=== PATIENT | male | born 1975 | race Two or more races ===

== ENCOUNTER 2020-09-12 14:06 | Outpatient (REF) | payer OTHER, SELFPAY ==
[2020-09-13 11:19] LABS: SARS COV2 PCR INHOUSE NEGATIVE (Negative)
== END 2020-09-12 14:07 | disposition home or self-care (01) ==
LOC: HO.LAB 14:06
PROVIDERS: Visit Provider Internal Medicine
DX: Z20.822 Contact with and (suspected) exposure to COVID-19 (principal)
CPT/HCPCS: C9803; U0003

== ENCOUNTER 2020-10-16 15:38 | Outpatient (REF) | payer OTHER, SELFPAY | END 2020-10-16 15:39 | disposition home or self-care (01) | LOC: HO.LAB 15:38 | PROVIDERS: Visit Provider Internal Medicine | DX: Z20.822 Contact with and (suspected) exposure to COVID-19 (principal) | CPT/HCPCS: C9803; U0003; U0005 ==

== ENCOUNTER 2022-08-14 12:15 | Outpatient (REF) | payer OTHER, SELFPAY ==
[2022-08-14 16:02] LABS: MANUAL DIFF FLAG NO
[2022-08-14 17:42] LABS: Basophils Absolute Auto 0.1 X10*3/uL (0.0-0.2); Basophils Percent Auto 0.9 % (0-2); Eosinophils Absolute Auto 0.1 X10*3/uL (0.0-0.4); Eosinophils Percent Auto 1.3 % (0-4); Hematocrit 44.6 % (42.0-52.0); Hemoglobin 15.2 g/dl (14.0-18.0); Imm Gran Abs Auto 0.04 X10*3/uL (0.00-0.03); Imm Gran Pct Auto 0.5 % (0.0-0.4); Lymphocytes Absolute Auto 2.6 X10*3/uL (1.2-4.9); Lymphocytes Percent Auto 30.4 % (20-40); Mean Corpuscular HGB Conc 34.1 g/dl (31.0-36.0); Mean Corpuscular Volume 88.1 fL (80.0-98.0); Mean Platelet Volume 10.8 fL (9.4-12.4); Monocytes Absolute Auto 0.7 X10*3/uL (0.1-1.2); Monocytes Percent Auto 7.7 % (2-11); Neutrophils Absolute Auto 5.1 x10*3/uL (2.0-8.3); Neutrophils Percent Auto 59.2 % (45-73); Platelet Count 290 X10*3/uL (160-400); Red Blood Count 5.06 X10*6/uL (4.60-5.80); White Blood Count 8.6 X10*3/uL (4.8-10.8)
[2022-08-14 17:49] LABS: D Dimer High Sensitivity < 150 NG/ML
[2022-08-14 18:22] LABS: Erythrocyte Sedimentation Rate 5 MM/HR (0-15)
[2022-08-14 18:52] LABS: Anion Gap 13 (12-20); Blood Urea Nitrogen 14 mg/dL (9-16); Calcium 9.9 mg/dL (8.4-10.2); Carbon Dioxide 30 mmol/L (22-29); Chloride 97 mmol/L (96-108); Estimated Glomerular Filt Rate 60; Glucose Random 481 mg/dL (60-115); Potassium 4.7 mmol/L (3.3-5.1); Sodium 135 mmol/L (135-145)
--- NOTE | 2022-08-14 18:57 | PC.NURSE ---
Call placed to pt to discuss critical glucose lab result of 481. Pt is a known diabetic per his report taking Metformin. Patient has an appointment with a new primary care provider on Aug 21. Advised to call Dr. Parisi's office regarding this critical result and to come to the ED with any adverse reactions. Per the lab, this result was reported to Dr. Lindsey, covering for Harjinder Callejas. advised lab to call patient's primary care provider.
== END 2022-08-14 12:16 | disposition home or self-care (01) ==
LOC: HO.LAB 12:15
PROVIDERS: Visit Provider Hospitalist
DX: M79.89 Other specified soft tissue disorders (principal)
CPT/HCPCS: 36415; 80048; 85025; 85379; 85652

== ENCOUNTER 2022-08-28 15:29 | Outpatient (REF) | payer OTHER, SELFPAY ==
--- NOTE | ~2022-08-28 | US_ITS ---
EXAMINATION: US VENOUS ULTRASOUND WITH DOPPLER LOWER EXTREMITY, LEFT CLINICAL INFORMATION: Left-sided ankle COMPARISON: None available. TECHNIQUE: Ultrasound of the deep veins is performed from the hip to the calf with compression sonography and color and pulse Doppler assessment. Spectral analysis with color-flow imaging is performed. FINDINGS: There is normal venous compression and respiratory variation and augmented flow. The visualized common femoral vein, superficial femoral vein, profunda femoral vein, popliteal vein, and the trifurcation region shows no evidence of deep venous thrombosis. There is no significant popliteal fossa cyst. If the patient's symptoms persist, followup ultrasound in 5 days 7 days might be of value to exclude proximal propagation from a non-visualized calf vein. US/US venous duplex LE LT IMPRESSION: No DVT demonstrated in the left lower extremity.
== END 2022-08-28 15:30 | disposition home or self-care (01) ==
LOC: HO.US 15:29
PROVIDERS: PCP Nurse Practitioner Family; Visit Provider Nurse Practitioner Family
DX: I82.402 Acute embolism and thrombosis of unspecified deep veins of left lower extremity (principal)
CPT/HCPCS: 93971

== ENCOUNTER → 2022-09-18 08:25 | Outpatient (BNVA) | payer OTHER, SELFPAY | PROVIDERS: PCP Internal Medicine; Visit Provider Dietitian, Registered | DX: E11.9 Type 2 diabetes mellitus without complications (principal) | CPT/HCPCS: 97802 ==

== ENCOUNTER 2022-10-31 09:38 | Emergency (ER) | payer OTHER, SELFPAY ==
--- NOTE | ~2022-10-31 | XR_ITS ---
EXAMINATION: XR CHEST CLINICAL INFORMATION: Chest pain COMPARISON: None available. TECHNIQUE: AP portable view of the chest was obtained. FINDINGS: No significant abnormality is noted involving the heart, lungs, mediastinum, bony thorax or soft tissues. XR/XR chest 1V IMPRESSION: No acute disease.
[2022-10-31 09:41] VITALS: BP 163/84; PULSE 91; RESP 18; TEMP 36.6; O2SAT 100; BMI 26.1
--- NOTE | 2022-10-31 09:43 | ECG_ITS ---
Test Reason : CHEST PAIN Blood Pressure : / mmHG Vent. Rate : 088 BPM Atrial Rate : 088 BPM P-R Int : 164 ms QRS Dur : 068 ms QT Int : 334 ms P-R-T Axes : 075 -05 043 degrees QTc Int : 404 ms Normal sinus rhythm Normal ECG No previous ECGs available Referred By: Generic ED Physician Electronically Signed By:Crow Huber
[2022-10-31 10:00] LABS: Hematocrit 51.2 % (42.0-52.0); Mean Corpuscular HGB Conc 33.2 g/dl (31.0-36.0); Mean Corpuscular Hemoglobin 30.7 pg (27.0-33.0); Mean Corpuscular Volume 92.4 fL (80.0-98.0); Mean Platelet Volume 9.7 fL (9.4-12.4); Platelet Count 273 X10*3/uL (160-400); Red Blood Count 5.54 X10*6/uL (4.60-5.80); Red Cell Distribution Width 11.9 % (11.0-16.0)
--- NOTE | 2022-10-31 10:05 | ED.CHESTPAIN ---
HPI - Chest Pain General Chief Complaint: Chest Pain Stated Complaint: chest pain Time Seen by Provider: 10/31/22 09:48 Source: patient and family () History of Present Illness HPI narrative: 47-year-old male with history of hypertension diabetes as well as a remote history of depression/anxiety and has previously seen a therapist in the past called his this morning when he woke up with shaking, chest tightness, shortness of breath, headache and is still noted to be very tremulous. and patient both state that he is been dealing with some very difficult work conditions were patient states that he feels like he has to walk on a chills. states that her never cries and she is very concerned. His primary care provider did refer him to see a therapist however appointment is not in the near future. Patient denies suicidal ideation but states that he has thoughts, he dreads going to work, he reports feeling fatigued. Related Data Home Medications Medication Instructions Recorded Confirmed ascorbic acid (vitamin C) 500 mg 500 mg PO DAILY 10/31/22 10/31/22 tablet cholecalciferol (vitamin D3) 25 25 mcg PO DAILY 10/31/22 10/31/22 mcg (1,000 unit) tablet Previous Rx's Medication Instructions Recorded lisinopril 10 mg tablet 10 mg PO DAILY #30 tabs 08/21/22 blood sugar diagnostic (OneTouch #100 ea 09/19/22 Verio test strips) blood-glucose meter (OneTouch #1 ea 09/19/22 Verio Meter) lancets (OneTouch UltraSoft #200 ea 09/19/22 Lancets) pioglitazone 45 mg tablet 45 mg PO DAILY 90 days #90 tabs 10/29/22 hydroxyzine HCl 50 mg tablet 50 mg PO BEDTIME #14 tabs 10/31/22 Allergies Allergy/AdvReac Type Severity Reaction Status Date / Time metformin AdvReac Mild Nausea Verified 10/29/22 14:36 Review of Systems Review of Systems: Pertinent positives and negatives as stated in HPI PMFSH Past Medical History Source: nursing notes reviewed Medical History Hypertension Limb swelling Type 2 diabetes mellitus Surgical History History of carpal tunnel surgery of right wrist S/P cholecystectomy Family History Family History Mother Diabetes Asthma HTN (hypertension) Brother Substance abuse Social History Social History Household Members: Spouse Housing: House Alcohol intake: never Patient Tobacco Use Status: Never used Tobacco e-Cigarette/Vaping Use: Never Used Second Hand Smoke Exposure: No Advance Directives: No Advance Directives Information Provided: Yes service: No Current occupational status: employed Current occupational exposures/hazards: No Cognitive needs: No Hearing needs: No Vision needs: No Physical Exam Vital Signs: Vital Signs: Last Vital Signs Temp 97.9 F 10/31/22 09:41 Pulse 91 10/31/22 09:41 Resp 18 10/31/22 09:41 BP 163/84 H 10/31/22 09:41 Pulse Ox 100 10/31/22 09:41 O2 Del Method Room Air 10/31/22 09:41 BMI result Body Mass Index 26.1 VITAL SIGNS: Reviewed. GENERAL: Well developed, well nourished, in no acute distress. HEAD: Normocephalic/atraumatic EYES: PERRLA, EOMI EARS: Ext canals without abnormality NOSE: Nares patent bilateral OROPHARYNX: no oral lesions noted, posterior pharynx clear NECK: Supple, no adenopathy LUNGS: Normal breath sounds. No adventitious sounds or accessory muscle use. SpO2<100> CARDIOVASCULAR: Regular rate and rhythm without noted murmurs ABDOMEN: Soft, non-tender, non-distended with bowel sounds. MUSCULOSKELETAL: No tenderness, deformities, or effusions noted on gross inspection. EXTREMITIES: No cyanosis, clubbing or edema. SKIN: Inspection of the skin reveals no rashes NEUROLOGIC: Alert and oriented x 4. Strength and sensation to light touch were grossly intact x 4. Psych: Anxious, contracted expression, shaking Medications Administered Discontinued Medications Generic Name Dose Route Start Last Admin Trade Name Freq PRN Reason Stop Dose Admin Clonazepam 0.5 mg 10/31/22 10:03 10/31/22 10:15 Clonazepam 0.5 Mg Tablet PO 10/31/22 10:04 0.5 mg ONCE ONE Administration Medical Decision Making Medical Decision Making MDM Narrative: 47-year-old male with several risk factors for cardiopulmonary etiology and will rule these out, however history and clinical assessment appear to be consistent with anxiety/panic as well as increasing depression. I reviewed all investigations and my interpretation is that patient is medically cleared and no evidence to suggest cardiopulmonary etiology. Patient is now pending evaluation by the care team. 1300: Care team evaluated the patient bedside and state that there are no safety concerns at this time and that on further discussion with the patient he has agreed to therapy and E AP. This would be arranged through the 's insurance and both the as well as the care team personnel will reach out to the individual in charge of this program. Patient will follow-up with his primary care provider with recommendations that he be started medication. Patient is otherwise hemodynamically stable for discharge home and will provide him with a script for hydroxyzine. Differential Diagnosis Please see the discussion above Consult Healthcare Provider Management of the patient was discussed with: Train Master Please see the discussion above Lab Data Please see the discussion above 10/31/22 09:53 10/31/22 09:53 Labs: Lab Results 10/31/22 10/31/22 10/31/22 Range/Units 09:53 09:53 09:53 WBC 8.0 (4.8-10.8) X10*3/uL RBC 5.54 (4.60-5.80) X10*6/uL Hgb 17.0 (14.0-18.0) g/dl Hct 51.2 (42.0-52.0) % MCV 92.4 (80.0-98.0) fL MCH 30.7 (27.0-33.0) pg MCHC 33.2 (31.0-36.0) g/dl RDW 11.9 (11.0-16.0) % Plt Count 273 (160-400) X10*3/uL MPV 9.7 (9.4-12.4) fL Absolute Nucleated RBC 0.000 (0.0-0.012) X10*3/uL Nucleated RBC % (auto) 0.0 (0.0-0.2) /100WBC Sodium 135 (135-145) mmol/L Potassium 4.8 (3.3-5.1) mmol/L Chloride 99 (96-108) mmol/L Carbon Dioxide 27 (22-29) mmol/L Anion Gap 14 (12-20) BUN 11 (9-16) mg/dL Creatinine 1.14 (0.5-1.4) mg/dL Estim Creat Clear Calc 80.9 Estimated GFR > 60 Random Glucose 306 H (60-115) mg/dL Calcium 9.8 (8.4-10.2) mg/dL Troponin I High Sens < 2.7 (<3.5-35.0) ng/L Independent Interpretation I performed an independent interpretation of an: EKG Interpretation: Normal sinus rhythm, HR -88, no STEMI, VA/QRS/QTC is within normal limits. Radiology Impression Radiologist Impression: My interpretation is in agreement with radiology's impression External Record Review External record reviewed: Outpatient record and Prior outpatient labs Chronic Conditions Patient?s care impacted by: Diabetes and Hypertension Discharge Plan Discharge Clinical Impression: Anxiety and depression, Atypical chest pain Patient Disposition: Home, Self-Care Instructions: Depression (ED), Generalized Anxiety Disorder (ED), Panic Disorder (ED), Anxiety (ED) Additional Instructions: 1. Resume all home medications as prescribed. 2. Please follow-up with EAP. Please follow-up with her primary care provider by calling today to set up an appointment for re-evaluation further outpatient management. Return to the ER for any acute worsening of symptoms. Prescriptions: New hydroxyzine HCl 50 mg tablet 50 mg PO BEDTIME Qty: 14 0RF No Action (DME) blood-glucose meter [OneTouch Verio Meter[place] [facility] [place]ructions .Route Qty: 1 0RF Rx Instructions: As directed (DME) OneTouch Verio test strips Strip See Rx Instructions .Route Qty: 100 3RF Rx Instructions: As directed (DME) lancets [OneTouch UltraSoft Lancets[place] [facility] [place] .Route Qty: 200 3RF Rx Instructions: As directed ascorbic acid (vitamin C) 500 mg Tablet 500 mg PO DAILY cholecalciferol (vitamin D3) 25 mcg (1,000 unit) Tablet 25 mcg PO DAILY pioglitazone 45 mg tablet 45 mg PO DAILY 90 Days Qty: 90 3RF lisinopril 10 mg tablet 10 mg PO DAILY Qty: 30 3RF Referrals: Odalys Arzola MD [Primary Care Provider] - Stand Alone Forms: Work/School Release
[2022-10-31] MEDS: clonazePAM 0.5 MG TABLET PO (10:15)
[2022-10-31 10:27] LABS: Anion Gap 14 (12-20); Blood Urea Nitrogen 11 mg/dL (9-16); Calcium 9.8 mg/dL (8.4-10.2); Carbon Dioxide 27 mmol/L (22-29); Chloride 99 mmol/L (96-108); Creatinine Clr Calc Pharmacy 80.9; Estimated Glomerular Filt Rate > 60; Glucose Random 306 mg/dL (60-115); Potassium 4.8 mmol/L (3.3-5.1); Sodium 135 mmol/L (135-145)
[2022-10-31 10:30] LABS: Troponin-I High Sensitivity < 2.7 ng/L (<3.5-35.0)
--- NOTE | 2022-10-31 11:58 | PHA.MEDREC ---
Pharmacy Consult ? Medication Reconciliation Pharmacy has completed the medication reconciliation. Patient's family memeber confirmed all medications. Ally Hernandes, CorazonD
--- NOTE | 2022-10-31 13:45 | MHC.CARE ---
Pt is a 47 year old male who presented to [facility] ED via EMS for chest pain. CARE Team was consulted for ?breakdown, not on meds and seen therapist prior, no SI?.? Pt was accompanied by his during the consult. Pt reported recent psychosocial stresses related to his job; Pt reports there is investigation currently between him peer due to conflict. Pt reports this morning feel increasingly distressed experiencing chest pain and panic attack like symptoms. Note Pts medical work up was negative and Pt was responsive to a PRN anxiety medication. Pt does not endorse current SI/HI/AH/VH.? Pt reports ruminating thoughts of his work and feels like every time he goes to work walking on egg shells. Pt reports no hx of prior suicide attempts to gestures. Pt reports no hx of [facility] admissions. Pt reports hx of therapy in the past due to similar issues though not recent.? Different treatment levels of care were discussed; therapy, psychiatry, PHP and [facility]. Pt was interested in re-starting therapy.? Plan for Pt and to connect with [facility] EAP program for short term therapy to address ongoing anxiety. Pt provided with information for [facility] and 988 crisis line. Pt will follow up [facility] PCP regarding anixety/depression medication. Pt, and Dr. Lin in agreement with plan of care.
== END 2022-10-31 13:18 | disposition home or self-care (01) ==
PROVIDERS: Emergency Provider Student in an Organized Health Care Education/Training Program; PCP Internal Medicine
DX: R07.89 Other chest pain (principal); F41.9 Anxiety disorder, unspecified; F32.A Depression, unspecified; I10 Essential (primary) hypertension; E11.9 Type 2 diabetes mellitus without complications
CPT/HCPCS: 36415; 71045; 80048; 84484; 85027; 93005; 99283

== ENCOUNTER 2022-11-23 07:26 | Outpatient (REF) | payer OTHER, SELFPAY ==
[2022-11-23 07:36] LABS: MANUAL DIFF FLAG NO
[2022-11-23 08:09] LABS: Basophils Absolute Auto 0.1 X10*3/uL (0.0-0.2); Basophils Percent Auto 0.9 % (0-2); Eosinophils Absolute Auto 0.1 X10*3/uL (0.0-0.4); Eosinophils Percent Auto 2.1 % (0-4); Hematocrit 48.2 % (42.0-52.0); Hemoglobin 16.1 g/dl (14.0-18.0); Imm Gran Abs Auto 0.02 X10*3/uL (0.00-0.03); Imm Gran Pct Auto 0.3 % (0.0-0.4); Lymphocytes Percent Auto 29.8 % (20-40); Mean Corpuscular HGB Conc 33.4 g/dl (31.0-36.0); Mean Corpuscular Hemoglobin 30.3 pg (27.0-33.0); Mean Corpuscular Volume 90.6 fL (80.0-98.0); Mean Platelet Volume 10.3 fL (9.4-12.4); Monocytes Absolute Auto 0.6 X10*3/uL (0.1-1.2); Monocytes Percent Auto 8.6 % (2-11); Neutrophils Absolute Auto 3.9 x10*3/uL (2.0-8.3); Neutrophils Percent Auto 58.3 % (45-73); Platelet Count 259 X10*3/uL (160-400); Red Blood Count 5.32 X10*6/uL (4.60-5.80); Red Cell Distribution Width 11.9 % (11.0-16.0); White Blood Count 6.6 X10*3/uL (4.8-10.8)
[2022-11-23 08:44] LABS: Creatinine Urine 122.61 mg/dL; Microalbum/Creatinine Ratio Ur 61.9 ug/mg cr
[2022-11-23 08:56] LABS: Alanine Aminotransferase 20 U/L (0-40); Albumin Level 4.4 g/dL (3.5-5.0); Alkaline Phosphatase 62 U/L (39-117); Anion Gap 13 (12-20); Aspartate Amino Transferase 12 U/L (5-37); Bilirubin Total 0.6 mg/dL (0.0-1.0); Blood Urea Nitrogen 19 mg/dL (9-16); Calcium 9.9 mg/dL (8.4-10.2); Carbon Dioxide 29 mmol/L (22-29); Chloride 101 mmol/L (96-108); Cholesterol 149 mg/dL; Estimated Glomerular Filt Rate > 60; Glucose Fasting 256 mg/dL (60-99); HDL Cholesterol 52 mg/dL; Iron 118 mcg/dL (45-160); LDL Cholesterol Calculated 82 mg/dl; Percent Iron Saturation 41 % (15-50); Sodium 138 mmol/L (135-145); Total Iron Binding Capacity 289 mcg/dL (228-428); Triglycerides 75 mg/dL; Unsaturated Iron Binding 171 ug/dL
[2022-11-23 09:13] LABS: Folate 19.2 ng/mL (> or = 4.0); Vitamin B12 571 pg/mL (200-900)
== END 2022-11-23 07:27 | disposition home or self-care (01) ==
LOC: HO.LAB 07:26
PROVIDERS: PCP Internal Medicine; Visit Provider Internal Medicine
DX: D64.9 Anemia, unspecified (principal); E55.9 Vitamin D deficiency, unspecified; E11.9 Type 2 diabetes mellitus without complications; E53.8 Deficiency of other specified B group vitamins; E78.5 Hyperlipidemia, unspecified
CPT/HCPCS: 36415; 80053; 80061; 82043; 82306; 82607; 82746; 83540; 85025

== ENCOUNTER 2023-01-30 14:01 | Outpatient (AMB) | payer OTHER, SELFPAY ==
[2023-01-30 14:30] VITALS: BP 152/102; PULSE 75; O2SAT 98; BMI 27.0
--- NOTE | 2023-01-30 14:30 | A.OFFPC_ITS ---
Vital Signs 01/30/23 14:30 01/30/23 14:44 Height 5 ft 10 in Weight 188 lb 6 oz BMI 27.0 BP 152/102 H 150/100 H Blood Pressure Location Lt brachial Lt brachial Position Sitting Sitting Pulse 75 Pulse Source Pulse Oximeter Pulse Oximetry (%) 98 Oxygen Delivery Method Room Air Intake Visit Reasons: DM, Anxiety,Depression Intake Note: Patient is here to follow up on DM, Anxiety and depression. Stock Raiser Required: No Accompanied by: Self / Same As Patient Allergies metformin Adverse Reaction (Mild, Verified 01/30/23 14:45) Nausea Medication List - Last Reconciled 01/30/23 by Odalys Lazcano MD ascorbic acid (vitamin C) 500 mg PO DAILY blood sugar diagnostic ([employer] Verio test strips) As directed blood-glucose meter ([employer] Generation SystemsTouch Verio Meter) As directed cholecalciferol (vitamin D3) 25 mcg PO DAILY escitalopram oxalate 5 mg PO DAILY lancets ([employer] UltraSoft Lancets) As directed lisinopril 10 mg PO DAILY omeprazole 20 mg PO DAILY PRN 30 days pioglitazone 45 mg PO DAILY 90 days Tobacco use date assessed: 10/29/22 Dental Screening Dental Screen Date: 01/30/23 Did you have a dental visit in the last 12 months?: No Did you have a dental problem in the last 6 months where you did not have access to dental care?: No Was dental information given to patient?: Yes HPI HPI Comments History of Present Illness Details This is a 47-year-old male with diabetes mellitus type 2, hypertension, hyperlipidemia and mild major depression that comes today for follow-up on his conditions. A1c not on goal and I will add a medication. Metformin cannot be used due to nausea and abdominal discomfort. Blood pressure elevated and he forgot to take lisinopril today. Blood pressure will be recheck by nurse navigator in 3 weeks. LDL not on goal and I will add a statin. Depression still present and said escitalopram makes him bonilla. I will start him on sertraline for this matter. No chest pain or shortness of breath. [facility] Medical History (Updated 01/30/23 @ 14:53 by Odalys Lazcano MD) Hypertension Limb swelling Type 2 diabetes mellitus Surgical History History of carpal tunnel surgery of right wrist S/P cholecystectomy Family History Mother Diabetes Asthma HTN (hypertension) Brother Substance abuse Social History Household Members: Spouse Housing: House Alcohol intake: never Patient Tobacco Use Status: Never used Tobacco e-Cigarette/Vaping Use: Never Used Second Hand Smoke Exposure: No service: No Current occupational status: employed Current occupational exposures/hazards: No Cognitive needs: No Hearing needs: No Vision needs: No Questionnaire Thrive Questionnaire Date Thrive assessed: 10/29/22 TOMER-7 AMB Questionnaire TOMER-7 Date TOMER - 7 assessed: 08/21/22 Source: Developed by Drs. Humble Richardson, Jing Nagel, Edy Ortiz and colleagues, with an educational cyril from [employer]. Review of Systems Const All systems reviewed & are unremarkable except as noted in HPI and below Eyes Reports no additional complaints, Denies change in vision and Denies other visual disturbances Card Denies chest pain at rest, Denies chest pain with activity, Denies edema, Denies irregular heart rhythm, Denies claudication, Denies dyspnea, Denies dyspnea on exertion, Denies orthopnea, Denies paroxysmal nocturnal dyspnea and Denies slow heart rate Resp Denies cough, Denies dyspnea and Denies dyspnea on exertion GI Denies abdominal pain, Denies change in bowel habits, Denies excessive flatus, Denies nausea and Denies vomiting Denies urinary hesitancy, Denies urinary incontinence and Denies urinary urgency Musc Denies abnormal gait, Denies atrophy, Denies deformity and Denies limited range of motion Skin/Breast Denies bleeding lesions, Denies changing lesions and Denies rash Neuro Denies abnormal gait and Denies lack of coordination Physical exam (Primary Care) Vital Signs: Last Vital Signs Pulse 75 01/30/23 14:30 BP 150/100 H 01/30/23 14:44 Pulse Ox 98 01/30/23 14:30 Oxygen Delivery Method Room Air 01/30/23 14:30 BMI result Body Mass Index 27.0 Tobacco/Smoking Status: Tobacco use Status Tobacco use date assessed 10/29/22 01/30/23 14:39 Patient Tobacco Use Status Never used Tobacco 01/30/23 14:39 e-Cigarette/Vaping Use Never Used 01/30/23 14:39 Thrive Assessment: Date of Thrive Assessment Date Thrive assessed 10/29/22 01/30/23 14:39 Eyes General: appearance normal, both eyes and all related structures Eyelids: Yes eyelids normal Conjunctivae: conjunctivae normal Neck Neck: Yes normal visual inspection and Yes supple Resp Effort & Inspection: normal respiratory effort Auscultation: clear to auscultation bilaterally Cardio Jugular venous distension: no JVD Rate: regular rate Rhythm: regular rhythm Heart sounds: S1 normal heart sound present and S2 normal heart sound present Extrem General: Yes full ROM Results AMB Hemoglobin A1c AMB Hemoglobin A1c 9.3 % Last Edit by SAHRA Olson on 01/30/23 14:41 Results Reviewed Results Reviewed: Laboratory Last Values Hgb A1c (Clinic) 9.3 % (4.0-6.0) H 01/30/23 14:14 Assessment and Plan Assessment & Plan (1) Type 2 diabetes mellitus: Code(s): E11.9 - Type 2 diabetes mellitus without complications Plan: Continue Actos. Start Januvia. A1c goal is equal or less than 7%. Patient declines insulin or any type of injection. (2) Mild major depression: Code(s): F32.0 - Major depressive disorder, single episode, mild Plan: Discontinue escitalopram. Start sertraline. (3) Hypertension: Code(s): I10 - Essential (primary) hypertension Plan: Be compliant with lisinopril. Blood pressure goal is equal or less than 130/80. Recheck blood pressure with nurse navigator in 3 weeks. (4) Hyperlipidemia LDL goal <70: Code(s): E78.5 - Hyperlipidemia, unspecified Plan: Start statins. LDL goal should be less than 70. Orders: Orders Lipid Panel Today E78.5 - Hyperlipidemia, unspecified Microalbumin, Random (w Creat) Today E11.9 - Type 2 diabetes mellitus without complications Vitamin D 25-OH Total Today E55.9 - Vitamin D deficiency, unspecified Comprehensive [place]. Panel Fast Today E78.5 - Hyperlipidemia, unspecified AMB Hemoglobin A1c Today E11.9 - Type 2 diabetes mellitus without complications Medications: New sertraline 25 mg PO DAILY 90 days 90 tabs 0RF sitagliptin phosphate (Januvia) 25 mg PO DAILY 90 days 90 tabs 0RF rosuvastatin 5 mg PO DAILY 90 days 90 tabs 0RF E78.5 - Hyperlipidemia, unsp ecified Changed From cholecalciferol (vitamin D3) 25 mcg PO DAILY To cholecalciferol (vitamin D3) 25 mcg PO DAILY 90 days 90 tabs 0RF Discontinued escitalopram oxalate Discontinued Reason: Patient Completed Course 5 mg PO DAILY 30 tabs 2RF F32.0 - Major depressive disorder, single episode, mild, F41.1 - Generalized anxiety disorder Coding Level of Care Code Est Pt Level 4 (57654) Diagnoses Type 2 diabetes mellitus E11.9 Mild major depression F32.0 Hypertension I10 Hyperlipidemia LDL goal <70 E78.5 Time Spent (min) 22
[2023-01-30 14:44] VITALS: BP 150/100
== END 2023-01-30 15:01 | disposition home or self-care (01) ==
PROVIDERS: PCP Internal Medicine; Visit Provider Internal Medicine
DX: E11.9 Type 2 diabetes mellitus without complications (principal); F32.0 Major depressive disorder, single episode, mild; I10 Essential (primary) hypertension; E78.5 Hyperlipidemia, unspecified
CPT/HCPCS: 83036; 99214

== ENCOUNTER 2023-08-19 16:06 | Outpatient (AMB) | payer OTHER, SELFPAY ==
--- NOTE | 2023-08-19 16:08 | A.OFFPC_ITS ---
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: No Accompanied by: Self / Same As Patient Allergies metformin Adverse Reaction (Mild, Verified 08/19/23 16:33) Nausea Medication List - Last Reconciled 08/19/23 by Odalys Lazcano MD blood pressure monitor As directed blood sugar diagnostic (OneTouch Verio test strips) As directed blood-glucose meter (OneTouch Verio Meter) As directed lancets (OneTouch UltraSoft Lancets) As directed lisinopril 10 mg PO DAILY omeprazole 20 mg PO DAILY PRN 30 days pioglitazone 45 mg PO DAILY 90 days rosuvastatin 5 mg PO DAILY 90 days sertraline 25 mg PO DAILY 90 days sitagliptin phosphate (Januvia) 25 mg PO DAILY 90 days Tobacco use date assessed: 08/19/23 Dental Screening Dental Screen Date: 08/19/23 Did you have a dental visit in the last 12 months?: No Did you have a dental problem in the last 6 months where you did not have access to dental care?: No Was dental information given to patient?: Yes HPI HPI Comments History of Present Illness Details This is a 48-year-old male with diabetes mellitus type 2, hypertension, hyperlipidemia, mild major depression and anxiety that comes today for follow-up on his conditions. A1c not on goal and he is only taking Januvia 25 mg. I told him that he has to take Actos 45 mg and I will increase Januvia to 50 mg. I did offer insulin which is indicated but he declines it. Blood pressure borderline elevated and will be recheck in 3 weeks by nurse navigator. Lipid panel will be ordered. Depression and anxiety still present but he does not want to increase his medication and does not want to go to counseling at the moment. No chest pain or shortness of breath. Complains of onychomycosis and tinea pedis. [facility] Medical History (Updated 08/19/23 @ 17:03 by Odalys Lazcano MD) Hypertension Type 2 diabetes mellitus Limb swelling Surgical History History of carpal tunnel surgery of right wrist S/P cholecystectomy Family History Mother Diabetes Asthma HTN (hypertension) Brother Substance abuse Social History Household Members: Spouse Housing: House Alcohol intake: never Patient Tobacco Use Status: Never used Tobacco e-Cigarette/Vaping Use: Never Used Second Hand Smoke Exposure: No service: No Current occupational status: employed Current occupational exposures/hazards: No Cognitive needs: No Hearing needs: No Vision needs: No Questionnaire PHQ-9 Over the last 2 weeks, how often have you been bothered by any of the following problems? 1. Little interest or pleasure in doing things: several days 2. Feeling down, depressed, or hopeless: nearly every day 3. Trouble falling or staying asleep, or sleeping too much: nearly every day 4. Feeling tired or having little energy: nearly every day 5. Poor appetite or overeating: not at all 6. Feeling bad about yourself - or that you are a failure or have let yourself or your family down: several days 7. Trouble concentrating on things, such as reading the newspaper or watching television: nearly every day 8. Moving or speaking so slowly that other people could have noticed. Or the opposite - being so fidgety or restless that you have been moving around a lot more than usual: several days 9. Thoughts that you would be better off or of hurting yourself in some way: not at all Total score: 15 Depression Screening Interpretation: Positive (no suicidal thoughts) Depression Screening Follow-up: Existing condition and In treatment Depression Screening Done: Yes 53975 - PHQ-9 Billing: Yes Source: Developed by Drs. Humble Richardson, Jing Nagel, Edy Ortiz and colleagues, with an educational cyril from [employer] Thrive Questionnaire Date Thrive assessed: 08/19/23 I am a: Patient What is your living situation today?: I have a steady place to live Within the past 12 months, did the food you bought not last and you didn't have the money to get more?: Never true Within the past 12 months, did you worry whether your food would run out before you got money to buy more?: Never true Do you have trouble paying for medicines?: No Do you have trouble getting transportation to medical appointments?: No Do you have trouble paying your heating and electricity bill?: No Do you have trouble taking care of your child, family member or friend?: No Do you have trouble with day-to-day activities such as bathing, preparing meals, shopping, managing finances, etc.?: No Are you currently unemployed and looking for a job?: No Are you interested in more education?: No Please select the resources that you would like help with: None Currently or been in a relationship where the following occur: no concerns reported THRIVE Score: 0 AUDIT C Alcohol Use Questionnaire (AUDIT-C) 1. How often do you have a drink containing alcohol?: Never Total Score: 0 TOMER-7 AMB Questionnaire TOMER-7 Date TOMER - 7 assessed: 08/19/23 Feeling nervous, anxious, or on edge: 3 = Nearly every day Not being able to stop or control worryin = Several days Worrying too much about different things: 3 = Nearly every day Trouble relaxin = More than half the days Being so restless that it is hard to sit still: 2 = More than half the days Becoming easily annoyed or irritable: 1 = Several days Feeling afraid as if something awful might happen: 3 = Nearly every day Total TOMER-7 score (0-4 normal; 5-9 mild; 10-14 moderate; 15-21 severe): 15 Source: Developed by Drs. Humble Richardson, Jing Nagel, Edy Ortiz and colleagues, with an educational cyril from [employer] TOMER-7 Assessment Billing TOMER-7 Assessment Tool: TOMER-7 Assessment 39153 Review of Systems Const All systems reviewed & are unremarkable except as noted in HPI and below Eyes Reports no additional complaints, Denies change in vision and Denies other visual disturbances Card Denies chest pain at rest, Denies chest pain with activity, Denies edema, Denies irregular heart rhythm, Denies claudication, Denies dyspnea, Denies dyspnea on exertion, Denies orthopnea, Denies paroxysmal nocturnal dyspnea and Denies slow heart rate Resp Denies cough, Denies dyspnea and Denies dyspnea on exertion GI Denies abdominal pain, Denies change in bowel habits, Denies excessive flatus, Denies nausea and Denies vomiting Denies urinary hesitancy, Denies urinary incontinence and Denies urinary urgency Musc Denies abnormal gait, Denies atrophy, Denies deformity and Denies limited range of motion Skin/Breast Denies bleeding lesions, Denies changing lesions and Denies rash Neuro Denies abnormal gait and Denies lack of coordination Physical exam (Primary Care) Vital Signs: Last Vital Signs BP 150/90 H 08/19/23 16:09 BMI result Body Mass Index 26.5 Tobacco/Smoking Status: Tobacco use Status Tobacco use date assessed 08/19/23 08/19/23 16:18 Patient Tobacco Use Status Never used Tobacco 08/19/23 16:18 e-Cigarette/Vaping Use Never Used 08/19/23 16:18 PHQ-9: PHQ-9 Score PHQ-9: Total score 15 08/19/23 16:41 Depression Screening Interpretation: Positive (no suicidal thoughts) Depression Screening Follow-up: Existing condition and In treatment Thrive Assessment: Date of Thrive Assessment Date Thrive assessed 08/19/23 08/19/23 16:20 Currently or been in a relationship where the following occur: no concerns reported Eyes General: appearance normal, both eyes and all related structures Eyelids: Yes eyelids normal Conjunctivae: conjunctivae normal Neck Neck: Yes normal visual inspection and Yes supple Resp Effort & Inspection: normal respiratory effort Auscultation: clear to auscultation bilaterally Cardio Jugular venous distension: no JVD Rate: regular rate Rhythm: regular rhythm Heart sounds: S1 normal heart sound present and S2 normal heart sound present Extrem General: Yes full ROM Results AMB Hemoglobin A1c AMB Hemoglobin A1c 12.0 % Last Edit by FABIAN Live on 08/19/23 16: 19 Results Reviewed Results Reviewed: Laboratory Last Values Hgb A1c (Clinic) 12.0 % (4.0-6.0) H 08/19/23 16:19 Assessment and Plan Assessment & Plan (1) Type 2 diabetes mellitus: Code(s): E11.9 - Type 2 diabetes mellitus without complications Qualifiers: 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 Increase Januvia to 50 mg once a day. A1c goal is equal or less than 7%. (2) Hypertension: Code(s): I10 - Essential (primary) hypertension Qualifiers: Hypertension type: primary hypertension Qualified Code(s): I10 - Essential (primary) hypertension Plan: Continue lisinopril. Blood pressure goal is equal or less than 130/80. (3) Mild major depression: Code(s): F32.0 - Major depressive disorder, single episode, mild Plan: Continue sertraline. (4) TOMER (generalized anxiety disorder): Code(s): F41.1 - Generalized anxiety disorder Plan: Continue sertraline. (5) Hyperlipidemia LDL goal <70: Code(s): E78.5 - Hyperlipidemia, unspecified Plan: Continue statins. LDL goal is less than 70. Orders: Orders AMB Hemoglobin A1c Today E11.9 - Type 2 diabetes mellitus without complications Comprehensive Prompton. Panel Fast Today E11.9 - Type 2 diabetes mellitus without complications Lipid Panel Today E78.5 - Hyperlipidemia, unspecified Microalbumin, Random (w Creat) Today E11.9 - Type 2 diabetes mellitus without complications Medications: New sitagliptin phosphate (Januvia) 50 mg PO DAILY 90 days 90 tabs 1RF E11.9 - Type 2 diabetes mellitus without complications terbinafine HCl 250 mg PO DAILY 90 days 90 tabs 0RF clotrimazole 1% 1 appl topical BID 4 weeks 15 grams 1RF Refilled pioglitazone 45 mg PO DAILY 90 days 90 tabs 3RF E11.9 - Type 2 diabetes mellitus without complications Discontinued sitagliptin phosphate (Januvia) Discontinued Reason: Patient Completed Course 25 mg PO DAILY 90 days 90 tabs 0RF Coding Level of Care Code Est Pt Level 4 (97866) Diagnoses Type 2 diabetes mellitus with hyperglycemia, without long-term current use of insulin E11.65 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
[2023-08-19 16:09] VITALS: BP 150/90; BMI 26.5
== END 2023-08-19 16:41 | disposition home or self-care (01) ==
PROVIDERS: PCP Internal Medicine; Visit Provider Internal Medicine
DX: E11.65 Type 2 diabetes mellitus with hyperglycemia (principal); F32.0 Major depressive disorder, single episode, mild; E11.69 Type 2 diabetes mellitus with other specified complication; I10 Essential (primary) hypertension; F41.1 Generalized anxiety disorder; E78.5 Hyperlipidemia, unspecified
CPT/HCPCS: 83036; 99214

== ENCOUNTER 2024-08-05 12:48 | Outpatient (AMB) | payer OTHER, SELFPAY ==
--- NOTE | 2024-08-05 12:56 | A.OFFPC_ITS ---
Vital Signs 08/05/24 12:57 Height 5 ft 10 in Weight 197 lb 6 oz BMI 28.3 BP 130/76 Blood Pressure Location Lt brachial Position Sitting Pulse 86 Pulse Source Pulse Oximeter Temp 96.9 F Temp Source Temporal Artery Scan Pulse Oximetry (%) 98 Oxygen Delivery Method Room Air Intake Visit Reasons: annual exam Intake Note: Patient is here today for a physical. Automobile Or Truck Rental Dispatcher Required: No Boat Designer: Not Required per policy Accompanied by: Self / Same As Patient Allergies metformin Adverse Reaction (Mild, Verified 08/05/24 13:09) Nausea Medication List - Last Reconciled 08/05/24 by Odalys Lzacano MD blood pressure monitor As directed blood sugar diagnostic ([employer] Verio test strips) As directed blood-glucose meter ([employer] Verio Meter) As directed clotrimazole 1% 1 appl topical BID 4 weeks lancets ([employer] UltraSoft Lancets) As directed lisinopril 10 mg PO DAILY omeprazole 20 mg PO DAILY PRN 30 days pioglitazone 45 mg PO DAILY 90 days rosuvastatin 5 mg PO DAILY 90 days sertraline 25 mg PO DAILY 90 days sitagliptin phosphate (Januvia) 50 mg PO DAILY 90 days terbinafine HCl 250 mg PO DAILY 90 days Tobacco use date assessed: 08/05/24 Dental Screening Dental Screen Date: 08/05/24 Did you have a dental visit in the last 12 months?: No Did you have a dental problem in the last 6 months where you did not have access to dental care?: No Was dental information given to patient?: No HPI HPI Comments History of Present Illness Details The patient is a 49-year-old male presenting for his physical exam. He has poorly controlled Type 2 Diabetes Mellitus, Hyperlipidemia, and Hypertension. The patient reports a Hemoglobin A1c of 11% and mentions a lapse in insurance coverage which resulted in a temporary discontinuation of diabetes medications. Glycemic control has historically been poor, with previous A1c levels recorded as high as 12%. Medications resumed recently after insurance was reinstated. The patient has a history of intolerance to Metformin and is currently experiencing anxiety, which affects appetite and causes gastric discomfort. He is on Lisinopril for hypertension, Rosuvastatin for hyperlipidemia, and Omeprazole for GERD. He has mild major depression and is currently on treatment. A history of depression managed with Sertraline is noted, along with a past surgical history of cholecystectomy and carpal tunnel release. The patient has not had an eye examination for many years and acknowledges fluctuating vision. A colonoscopy is overdue, with last screening over a decade ago. Family history is significant for diabetes and hypertension. - Discussion on overdue colonoscopy and plan for rescheduling. - Need for regular ophthalmology examina tions due to diabetes. - Confirmation of Tetanus vaccination fr 2019. - Flu vaccination not up to date. - Laboratory tests planned to evaluate c urrent metabolic baseline. [facility] Medical History (Updated 08/05/24 @ 20:11 by Odalys Lazcano MD) Hypertension Type 2 diabetes mellitus Limb swelling Surgical History History of carpal tunnel surgery of right wrist S/P cholecystectomy Family History (Updated 08/05/24 @ 13:16 by Odalys Lazcano MD) Mother Diabetes Asthma HTN (hypertension) Brother Substance abuse Father No problems noted. Social History Household Members: Spouse Housing: House Alcohol intake: never Patient Tobacco Use Status: Never used Tobacco e-Cigarette/Vaping Use: Never Used Second Hand Smoke Exposure: No service: No Current occupational status: employed Current occupational exposures/hazards: No Cognitive needs: No Hearing needs: No Vision needs: No Questionnaire PHQ-9 Over the last 2 weeks, how often have you been bothered by any of the following problems? 1. Little interest or pleasure in doing things: not at all 2. Feeling down, depressed, or hopeless: several days 3. Trouble falling or staying asleep, or sleeping too much: several days 4. Feeling tired or having little energy: several days 5. Poor appetite or overeating: not at all 6. Feeling bad about yourself - or that you are a failure or have let yourself or your family down: not at all 7. Trouble concentrating on things, such as reading the newspaper or watching television: several days 8. Moving or speaking so slowly that other people could have noticed. Or the opposite - being so fidgety or restless that you have been moving around a lot more than usual: not at all 9. Thoughts that you would be better off or of hurting yourself in some way: not at all Total score: 4 Depression Screening Interpretation: Positive Depression Screening Follow-up: Existing condition, In treatment and Follow-up Visit Requested Depression Screening Done: Yes 23912 - PHQ-9 Billing: Yes Source: Developed by Drs. Humble Richardson, Jing Nagel, Edy Ortiz and colleagues, with an educational cyril from [employer]. Thrive Questionnaire Date Thrive assessed: 08/05/24 I am a: Patient What is your living situation today?: I have a steady place to live Within the past 12 months, did the food you bought not last and you didn't have the money to get more?: I choose not to answer this question Within the past 12 months, did you worry whether your food would run out before you got money to buy more?: I choose not to answer this question Do you have trouble paying for medicines?: I choose not to answer this question Do you have trouble getting transportation to medical appointments?: I choose not to answer this question Do you have trouble paying your heating and electricity bill?: I choose not to answer this question Do you have trouble taking care of your child, family member or friend?: I choose not to answer this question Do you have trouble with day-to-day activities such as bathing, preparing meals, shopping, managing finances, etc.?: I choose not to answer this question Are you currently unemployed and looking for a job?: No Are you interested in more education?: No Please select the resources that you would like help with: None Currently or been in a relationship where the following occur: I choose not to answer THRIVE Score: 0 AUDIT C Alcohol Use Questionnaire (AUDIT-C) 1. How often do you have a drink containing alcohol?: Never Total Score: 0 Score Reviewed/Action Taken: No TOMER-7 AMB Questionnaire TOMER-7 Date TOMER - 7 assessed: 08/05/24 Feeling nervous, anxious, or on edge: 1 = Several days Not being able to stop or control worryin = Several days Worrying too much about different things: 2 = More than half the days Trouble relaxin = More than half the days Being so restless that it is hard to sit still: 1 = Several days Becoming easily annoyed or irritable: 0 = Not at all Feeling afraid as if something awful might happen: 1 = Several days Total TOMER-7 score (0-4 normal; 5-9 mild; 10-14 moderate; 15-21 severe): 8 Source: Developed by Drs. Humble Richardson, Jing Nagel, Edy Ortiz and colleagues, with an educational cyril from [employer]. TOMER-7 Assessment Billing TOMER-7 Assessment Tool: TOMER-7 Assessment 13735 Review of Systems Const All systems reviewed & are unremarkable except as noted in HPI and below Card Denies chest pain at rest, Denies chest pain with activity, Denies edema, Denies irregular heart rhythm, Denies claudication, Denies dyspnea, Denies dyspnea on exertion, Denies orthopnea, Denies paroxysmal nocturnal dyspnea and Denies slow heart rate Resp Denies cough, Denies dyspnea and Denies dyspnea on exertion GI Denies abdominal pain, Denies change in bowel habits, Denies excessive flatus, Denies nausea and Denies vomiting Denies urinary hesitancy, Denies urinary incontinence and Denies urinary urgency Musc Denies atrophy, Denies deformity and Denies limited range of motion Physical exam (Primary Care) Vital Signs: Last Vital Signs Temp 96.9 F 08/05/24 12:57 Pulse 86 08/05/24 12:57 BP 130/76 08/05/24 12:57 Pulse Ox 98 08/05/24 12:57 Oxygen Delivery Method Room Air 08/05/24 12:57 BMI result Body Mass Index 28.3 Tobacco/Smoking Status: Tobacco use Status Tobacco use date assessed 08/05/24 08/05/24 13:05 Patient Tobacco Use Status Never used Tobacco 08/05/24 13:05 e-Cigarette/Vaping Use Never Used 08/05/24 13:05 PHQ-9: PHQ-9 Score PHQ-9: Total score 4 08/05/24 13:16 Depression Screening Interpretation: Positive Depression Screening Follow-up: Existing condition, In treatment and Follow-up Visit Requested Thrive Assessment: Date of Thrive Assessment Date Thrive assessed 08/05/24 08/05/24 13:05 Currently or been in a relationship where the following occur: I choose not to answer HENMT Head: Yes normal to inspection, Yes normocephalic and Yes atraumatic Ears: external ears normal Eyes General: appearance normal, both eyes and all related structures Eyelids: Yes eyelids normal Conjunctivae: conjunctivae normal Neck Neck: Yes normal visual inspection and Yes supple Resp Effort & Inspection: normal respiratory effort Auscultation: clear to auscultation bilaterally Cardio Jugular venous distension: no JVD Rate: regular rate Rhythm: regular rhythm Heart sounds: S1 normal heart sound present and S2 normal heart sound present GI Inspection: Yes normal to inspection Palpation (GI): Soft to palpation and nontender Auscultation: normal bowel sounds Skin General skin exam: no rashes or lesions noted Neuro General: no focal motor deficits Extrem General: Yes full ROM Psych Appearance: grossly normal Results AMB Hemoglobin A1c AMB Hemoglobin A1c 11.0 % Last Edit by FABIAN Leon on 08/05/24 13:0 9 Results Reviewed Results Reviewed: Laboratory Last Values Hgb A1c (Clinic) 11.0 % (4.0-6.0) H 08/05/24 12:56 Coding Level of Care Code Est Pt Prev Care 40-64y(70650) Diagnoses Physical exam Z00.00 Mild major depression F32.0 Type 2 diabetes mellitus with hyperglycemia, without long-term current use of insulin E11.65 Diabetes mellitus chairperson anesthesiology insulin use: without mcc use Diabetes mellitus complication status: with hyperglycemia Additional Codes TOMER-7 Assessment Billing - TOMER-7 Assessment Tool: TOMER-7 Assessment 71262 ([id number]) PHQ-9 - 01628 - PHQ-9 Billing: Yes ([id number]) Time Spent (min) 31 Assessment & Plan Assessment & Plan (1) Physical exam: Code(s): Z00.00 - Encounter for general adult medical examination without abnormal findings Category: Medical (2) Mild major depression: Code(s): F32.0 - Major depressive disorder, single episode, mild Category: Medical (3) Type 2 diabetes mellitus: Code(s): E11.9 - Type 2 diabetes mellitus without complications Category: Medical Qualifiers: Diabetes mellitus chairperson anesthesiology insulin use: without chairperson anesthesiology use Diabetes mellitus complication status: with hyperglycemia Qualified Code(s): E11.65 - Type 2 diabetes mellitus with hyperglycemia Plan - Monitor and manage Type 2 Diabetes Mellitus with Januvia and evaluate blood glucose regularly. - Continue Lisinopril for Hypertension management; monitor blood pressure. - Continue Rosuvastatin for Hyperlipidemia; lipid panel to be part of laboratory work-up. - Continue Omeprazole for GERD treatment; monitor symptoms. - Maintain current Sertraline dosage for Depression and Anxiety management. - Schedule an ophthalmology exam to assess diabetic retinopathy. - Arrange for colonoscopy screening due to prolonged interval since last examination. - Advise flu vaccination and update on vaccination status as necessary. Patient was informed and verbally consented to the use of an ambient scribe for clinic note documentation during this visit. During the visit, I emphasized the importance of medication adherence following past disruption due to lack of insurance. I discussed the need for tight glycemic control to prevent diabetes-related complications. We revisited the plan for managing his hyperlipidemia and hypertension, underscoring the significance of continued medication compliance. The necessity of regular eye examinations was reiterated due to the known risk of diabetic retinopathy. The patient expressed understanding of the need for scheduled diagnostic labs and agreed to proceed with planned evaluations. We also discussed the overdue colonoscopy and organized its rescheduling, and I noted his flu vaccination status. Options for anxiety management and its influence on appetite were reviewed, including potential triggers related to caffeine consumption. Orders: Orders AMB Hemoglobin A1c Today E11.65 - Type 2 diabetes mellitus with hyperglycemia Lipid Panel Today E78.5 - Hyperlipidemia, unspecified Microalbumin, Random (w Creat) Today R80.9 - Proteinuria, unspecified Comprehensive [place]. Panel Fast Today E11.65 - Type 2 diabetes mellitus with hyperglycemia Referrals Ophthalmology Referral E11.65 - Type 2 diabetes mellitus with hyperglycemia Open Access Screening Colonoscopy Referral Z12.12 - Encounter for screening for malignant neoplasm of rectum Cologuard Test Z12.11 - Encounter for screening for malignant neoplasm of colon Medications: Refilled rosuvastatin 5 mg PO DAILY 90 tabs 0RF 90 days E78.5 - Hyperlipidemia, unspecified lisinopril 10 mg PO DAILY 30 tabs 3RF pioglitazone 45 mg PO DAILY 90 tabs 3RF 90 days E11.9 - Type 2 diabetes mellitus without complications omeprazole 20 mg PO DAILY PRN 30 caps 0RF heartburn 30 days Patient Instructions: - Take all medications as prescribed without interruption. - Schedule and attend the upcoming ophthalmology appointment. - Get the colonoscopy as discussed. - Follow up with laboratory work-up on Friday. - Continue efforts to maintain healthy lifestyle habits, including diet and exercise. - Monitor blood pressure and blood glucose regularly. - Update and receive necessary vaccinations. - Avoid excessive caffeine intake if it exacerbates anxiety symptoms. - Return for follow-up as directed to evaluate progress and adjust treatment plans.
[2024-08-05 12:57] VITALS: BP 130/76; PULSE 86; TEMP 36.1; O2SAT 98; BMI 28.3
--- OUTSIDE RECORDS SUMMARY | 2024-08-05 13:41 | XMS_ITS | Data Portability ---
Author Organization [facility], Main Office Address [address] [facility] [address] [place] [id number] Care Team Providers Care [employer] Player Name Role Phone RIZWAN HINOJOSA Primary Care Provider Unavail able Assessment Encounter Date Assessment Date Assessment LastModified by Organization Details LastModified Time 10/25/2019 10/25/2019 This service was provided using telemedicine. Patient consented to video & audio visit Patient was located at at home Provider was located in the office. No other persons participated in the telemedicine visit except for the patient unless otherwise indicated here. Total time of visit was 16 minutes. [email or web address] Not available 10/25/2019 16:40:02 11/02/2019 11/02/2019 This service was provided using telemedicine. Patient consented to telephone visit Patient was located at at home Provider was located in the office. No other persons participated in the telemedicine visit except for the patient unless otherwise indicated here. Total time of visit was 12 minutes. [email or web address] Not available 11/02/2019 11:57:39 Plan of Treatment Reminders Order Date Submit Date Provider Last Modified By Organization Details Last Modified Time Details Appointments None recorded . Lab hemoglob in A1C, fingerst ick 2020 021 [email or web address] In-Office Order, Internal Use Only DO Not Attach Compendium DO Not Attach Compendium, Do Not Delete/merge, [id number] 16:26:01 microalb umin, urine 2020 021 [email or web address] [facility], [address] , [place], [address], 2 09:05:10 CMP, serum or plasma 2020 021 [email or web address] [facility], [address], [place], [address], 2 09:05:10 lipid panel, serum 2020 021 [email or web address] [facility], [address], [place], [address], 2 09:05:10 CBC w/ auto diff 2020 021 [email or web address] [facility], [address], [place], [address], 2 09:05:11 microalb umin, urine 2019 020 [email or web address] [facility], [address], [place], [address], 0 10:06:12 HbA1c (hemoglo bin A1c), blood 2019 020 [email or web address] [facility], [address], [place], [address], 0 16:06:33 lipid panel, serum 2019 020 [email or web address] [facility], [address], [place], [address], 0 10:06:12 CMP, serum or plasma 2019 020 [email or web address] [facility], [address], [place], [address], 0 10:06:12 hemoglob in A1C, fingerst ick 2018 019 [email or web address] In-Office Order, Internal Use Only DO Not Attach Compendium DO Not Attach Compendium, Do Not Delete/merge, [id number] 9 15:46:23 lipid panel, serum 2018 019 [email or web address] [facility], [address], [place], [address], 0 08:15:39 microalb umin, urine 2018 019 [email or web address] [facility], [address], [place], [address], 0 08:15:39 BMP, serum or plasma 2017 018 [email or web address] [facility], [address], [place], [address], 8 08:14:30 lipid panel, serum 2017 018 [email or web address] [facility], [address], [place], [address], 8 08:14:30 microalb umin, urine 2017 018 [email or web address] [facility], [address], [place], [address], 8 08:14:30 ALT (alanine aminotra nsferase ), serum or plasma 2017 018 [email or web address] [facility], [address], [place], [address], 8 08:14:30 CBC w/ auto diff 2017 018 [email or web address] [facility], [address], [place], [address], 8 08:14:30 hemoglob in A1C, fingerst ick 2017 018 [email or web address] In-Office Order, Internal Use Only DO Not Attach Compendium DO Not Attach Compendium, Do Not Delete/merge, [id number] 8 16:51:33 Referral None recorded . Procedures None recorded . Surgeries None recorded . Imaging None recorded . Medication Orders metformi n 500 mg tablet 2020 021 ceci [facility]armacy #[id number], [address] [place], [address], 2 09:28:14 lisinopr il 10 mg tablet 2020 021 [facility]/Pharmacy #0373, [address] [place], [address], 1 20:33:16 atorvast atin 20 mg tablet 2020 021 [facility]/Pharmacy #0373, [address] [place], [address], 1 20:33:15 ketocona zole 2 % topical cream 2019 020 [email or web address] [facility], [address] [place], [address], 1 15:45:10 pioglita zone 30 mg tablet [address]/Pharmacy #0373, [address] [place], [address], 1 15:46:15 lisinopr il 10 mg tablet 2019 020 INTERFACE [facility]armacy #0373, [address] [place], [address], 0 16:06:26 multivit lua tablet 2019 020 INTERFACE [facility]/Pharmacy #0373, [address] [place], [address], 0 16:09:53 atorvast atin 20 mg tablet 2019 020 INTERFACE [facility]armacy #0373, [address] [facility], [place], [address], 0 16:06:26 Neuronti n 300 mg capsule 2018 019 [facility], [address] [place] [address], [address], 0 15:28:26 lisinopr il 10 mg tablet 2018 019 INTERFACE [facility], [facility] 3, [address] [place] [address], [address], 9 15:46:29 sertrali ne 100 mg tablet 2018 019 [facility] 3, [address] [place] [address], [address], 0 15:30:21 pioglita zone 30 mg tablet [address], [address] [place] [address], [address], 1 15:46:15 ketocona zole 2 % topical cream [address], [address] [place] [address], [address], 1 15:45:10 Patient Targets Encounter Date Encounter Id Patient Goals Patient Target Last Modified By Organization Details Last Modified Time 09/11/2017 [id number] Ongoing of Microalbumin/Cr eatinine Ratio yearly Not available Not available Not available Ongoing of Blood Pressure 130 / 80 Not available Not available Not available Ongoing of Hemoglobin A1C 2 times per yr Not available Not available Not available Ongoing of Hemoglobin A1C <7 Not available Not available Not available Ongoing of LDL Direct <100 Not available Not available Not available Ongoing of Cholesterol, LDL <100 Not available Not available Not available Pt advised and agrees to do moderate exercise (such as walking) for approximately 150 minutes per week; to decrease carbohydrate intake (25 % of total carbohydrates or less); and to monitor blood glucose as directed Will bring meter and/or readings to appointments. Patient preferences and goals incorporated in plan and updated/modifie d as needed to reflect progress toward goal. [email or web address] Not available 09/11/2017 17:51:55 06/29/2018 [id number] Ongoing of Microalbumin/Cr eatinine Ratio yearly Not available Not available Not available intermodal customer service goal of Blood Pressure 130 / 80 Not available Not available Not available Ongoing of Hemoglobin A1C 2 times per yr Not available Not available Not available Ongoing of Hemoglobin A1C <7 Not available Not available Not available Ongoing of LDL Direct <100 Not available Not available Not available Ongoing of Cholesterol, LDL <100 Not available Not available Not available Pt advised and agrees to do moderate exercise (such as walking) for approximately 150 minutes per week; to decrease carbohydrate intake (25 % of total carbohydrates or less); and to monitor blood glucose as directed Will bring meter and/or readings to appointments. Patient preferences and goals incorporated in plan and updated/modifie d as needed to reflect progress toward goal. [email or web address] Not available 06/29/2018 23:18:45 Patient Instructions Encounter Date Encounter Id Patient Instructions Last Modified By Organization Details Last Modified Time 09/11/2017 [id number] learning about type 2 diabetes [email or web address] Not available 09/11/2017 16:51:33 type 2 diabetes: care instructions [email or web address] Not available 09/11/2017 16:51:33 athlete's foot: care instructions [email or web address] Not available 09/11/2017 17:46:05 Medications (OTC, herbal therapies, supplements) reviewed and reconciled with patient and or caregiver, including potential side effects, drug interactions, instructions, and the consequences of not taking medication. Reviewed potential barriers to medication adherence, such as side effects from medication or cost of medication. [email or web address] Not available 09/11/2017 15:55:36 06/29/2018 [id number] high blood pressure: care instructions [email or web address] Not available 06/29/2018 15:46:23 learning about high blood pressure [email or web address] Not available 06/29/2018 15:46:23 [facility], all current and discharge medications (OTC, herbal therapies, supplements) reviewed and reconciled with patient and or caregiver, including potential side effects, drug interactions, instructions, and the consequences of not taking medication. Reviewed potential barriers to medication adherence, such as side effects from medication or cost of medication. [email or web address] Not available 06/29/2018 15:28:41 10/25/2019 [id number] learning about type 2 diabetes [email or web address] Not available 10/25/2019 16:06:23 type 2 diabetes: care instructions [email or web address] Not available 10/25/2019 16:06:24 high blood pressure: care instructions [email or web address] Not available 10/25/2019 16:06:24 learning about high blood pressure [email or web address] Not available 10/25/2019 16:06:24 Medications (OTC, herbal therapies, supplements) reviewed and reconciled with patient and or caregiver, including potential side effects, drug interactions, instructions, and the consequences of not taking medication. Reviewed potential barriers to medication adherence, such as side effects from medication or cost of medication. [email or web address] Not available 10/25/2019 15:23:57 05/15/2021 [id number] learning about type 2 diabetes acennerazzo Not available 05/15/2021 16:26:01 type 2 diabetes: care instructions [email or web address] Not available 05/15/2021 16:26:01 high blood pressure: care instructions [email or web address] Not available 05/15/2021 20:30:17 learning about high blood pressure [email or web address] Not available 05/15/2021 20:30:17 high cholesterol: care instructions [email or web address] Not available 05/15/2021 20:30:17 Medications (OTC, herbal therapies, supplements) reviewed and reconciled with patient and or caregiver, including potential side effects, drug interactions, instructions, and the consequences of not taking medication. Reviewed potential barriers to medication adherence, such as side effects from medication or cost of medication. [email or web address] Not available 05/15/2021 15:43:09 Reason for Referral None Reported. Results Created Date Observation Date Name Description Value Unit Range Abnormal Flag Note LastModifiedBy Organization Detail LastModifiedTime 09/12/19 18 09/11/2017 hemog lobin A1C, finge rstic k HA1C 12.0 % 4-6 Not Available In-Office Order Internal Use Only DO Not Attach Compendium DO Not Attach Compendium, Do Not Delete/merge, [id number] 09/11/2017 15:59:59 06/29/19 19 06/29/2018 hemog lobin A1Ckenan HA1C 11.7 % 4-6 Not Available In-Office Order Internal Use Only DO Not Attach Compendium DO Not Attach Compendium, Do Not Delete/merge, [id number] 06/29/2018 15:46:18 05/15/20 21 05/15/2021 hemog lobin A1C, kenan valerio A1C 11.8 % 4-6 high Not Available In-Office Order Internal Use Only DO Not Attach Compendium DO Not Attach Compendium, Do Not Delete/merge, [id number] 05/15/2021 15:50:46 Result Notes None recorded. Problems Name Problem SNOMED Code Status Onset Date Resolution Date Notes Provider Name and Address Organization Details Recorded Time Type 2 diabetes mellitus 72289464 Active 2016 Not Available [facility] 2 09:41:33 Essential hypertension 11698770 Active 2016 Not Available [facility] 2 09:41:33 Hyperlipidemi a 88438415 Active 2016 Not Available [facility] 2 09:41:33 Onychomycosis of toenails 742407829 Active 2016 Not Available [facility] 2 09:41:33 Gastroesophag eal reflux disease 574088711 Active 2016 Not Available [facility] 2 09:41:33 Insomnia 303620884 Active 2017 Not Available [facility] 2 09:41:33 Anxiety 03702477 Active 2017 Not Available [facility] 2 09:41:33 Depressive disorder 96666023 Active 2017 Not Available [facility] 2 09:41:33 Tinea pedis 9976735 Active 2019 Not Available [facility] 2 09:41:33 SARS-CoV-2 Active 2019 Not Available [facility] 2 09:41:33 Problem Notes None recorded. Procedures Surgical History Date Name Laterality Status Provider Name and Address Organization Details Recorded Time 020 Diabetic Foot Exam (Monofilament) completed Suman Gonzalez [facility] 10/25/2019 15:23:57 019 Diabetic Foot Exam (Monofilament) completed Rizwan Hinojosa MD [address] [address], [place], [address], [facility] 06/29/2018 23:16:51 017 Orthopedic Surgery completed [facility] 05/14/2017 14:42:05 Gastrointestinal Surgery completed [facility] 05/14/2017 14:42:05 Colonoscopy completed [facility] 05/14/2017 14:42:05 Imaging Results None recorded. Procedure Notes None recorded. Medical Equipment None Reported. Allergies Allergen ID Allergen Name Allergen Category Reaction Reaction Severity Criticality Documentation Date Start Date Code Code System Note Provider Name and Address Organization Details Recorded Time 59430 pioglitaz one medicatio n other Not available Not available 05/15/2021 90907 RxNorm blurr y visio n DEBI Moralez, [facility] 1 15:46:57 Medications Name Sig Start Date Stop Date Status Note LastModified by Organization Details LastModified Time metformin 500 mg tablet TAKE 2 TABLETS BY MOUTH TWICE A DAY FOR 90 DAYS active Not Available Not Available No t Available Protonix 40 mg tablet,shama yed release Take 1 tablet as needed by oral route. 05/15 completed Not Available Not Available Not Available atorvastati n 20 mg tablet TAKE 1 TABLET BY MOUTH EVERY DAY active Not Available Not Available No t Available Neurontin 300 mg capsule 1 tablet at 1 hour before bedtime. May take 2 if 1 tablet not helping for insomnia 10/24 completed Not Available Not Available Not Available glyburide 5 mg tablet Take 1 tablet every day by oral route. 09/11 completed Not Available Not Available Not Available sertraline 100 mg tablet 1 tablet daily. Start after completin g 50 mg for 1 week 10/24 completed Not Available Not Available Not Available meloxicam 7.5 mg tablet 10/24 completed Not Available Not Available Not Available terbinafine HCl 250 mg tablet Take 1 tablet every day by oral route. 07/17 completed Not Available Not Available Not Available metformin 1,000 mg tablet Take 1 tablet twice a day by oral route for 90 days. active Not Available Not Available No t Available lisinopril 10 mg tablet TAKE 1 TABLET BY MOUTH EVERY DAY DIRECTED active Not Available Not Available No t Available pioglitazon e 30 mg tablet Take 1 tablet every day by oral route. active Not Available Not Available No t Available ketoconazol e 2 % topical cream Apply 1 applicati on every day by topical route for 14 days. 05/15 completed Not Available Not Available Not Available fluticasone propionate 50 mcg/actuati on nasal spray,suspe nsion 05/15 completed Not Available Not Available Not Available clotrimazol e 1 % topical cream Apply 1 applicati on twice a day by topical route. 2019 active Not Available Not Available Not Avai lable sertraline 50 mg tablet 1 tablet daily for 7 days then switch to 100 mg 09/11 completed Not Available Not Available Not Available amoxicillin 875 mg-potassiu m clavulanate 125 mg tablet Take 1 tablet every 12 hours by oral route for 10 days. 05/15 completed Not Available Not Available Not Available Daily-Yan tablet Take 1 tablet every day by oral route for 90 days. active Not Available Not Available No t Available B-Complex 1 po qd active Not Available Not Av ailable Not Available Vitals Date Recorded Body height Body mass index (BMI) Body weight Heart rate Oxygen saturation Oxygen saturation in Arterial blood by Pulse oximetry Body temperature Systolic blood pressure Diastolic blood pressure Provider Name and Address Organization Details Last Updated DateTime 8 173.36 cm 32 kg/m2 10787.5 8 g 86 /min 98 % 98 % 97.6 [degF] 136 mm[Hg] 68 mm[Hg] Suman Gonzalez [facility] 8 15:58:03 Date Recorded Body height Body temperature Oxygen saturation Oxygen saturation in Arterial blood by Pulse oximetry Heart rate Body mass index (BMI) Body weight Systolic blood pressure Diastolic blood pressure Provider Name and Address Organization Details Last Updated DateTime 9 173.36 cm 97.8 [degF] 98 % 98 % 97 /min 31.8 kg/m2 14803.2 g 127 mm[Hg] 85 mm[Hg] Elli Herrera MA [facility] 9 15:36:38 Date Recorded Body height Body mass index (BMI) Body weight Oxygen saturation Oxygen saturation in Arterial blood by Pulse oximetry Heart rate Body temperature Systolic blood pressure Diastolic blood pressure Provider Name and Address Organization Details Last Updated DateTime 1 173.99 cm 30 kg/m2 79119.1 7 g 99 % 99 % 89 /min 97.88 [degF] 124 mm[Hg] 80 mm[Hg] Elli Herrera MA [facility] 1 15:43:45 Social History Question Answer Notes LastModified by Organizat ion Details LastModified Time Tobacco Smoking Status Never Smoker Suman liz [facility] 05/14/2017 14:42:05 Do You Have An Advance Directive? Yes [email or web address] Information not available 05/15/2021 What Is Your Level Of Alcohol Consumption? None [employer] Information not available 05/14/2017 Is Blood Transfusion Acceptable In An Emergency? No [email or web address]ki Information not available 05/14/2017 What Is Your Level Of Caffeine Consumption? Occasional Information not available 05/14/2017 How Much Tobacco Do You Chew? None [employer] Information not available 05/14/2017 Are You Currently Employed? Yes [employer] Information not available 05/14/2017 What Type Of Diet Are You Following? REGULAR Information not available 05/14/2017 Which Illicit Or Recreational Drugs Have You Used? 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 With Others [email or web address] Information not available 05/15/2021 How Often Do You Need To Have Someone Help You When You Read Instructions, Pamphlets, Or Other Written Material From Your Doctor Or Pharmacy? Never Information not available 05/14/2017 Have You Served In The ? No Information not available 05/14/2017 What Was The Date Of Your Most Recent Tobacco Screening? 06/29/2018 [email or web address] Information not available 05/15/2021 How Many Children Do You Have? 2 Information not available 05/14/2017 Do You Use Protection During Sex? No Information not available 05/14/2017 Seat Belts Used Routinely Yes [email or web address] Information not available 05/15/2021 Are You Sexually Active? Yes Information not available 05/14/2017 Smoke Alarm In Home Yes [email or web address] Information not available 05/15/2021 Are You Passively Exposed To Smoke? No [employer] Information no t available 05/14/2017 Do You Use Sunscreen Routinely? No [employer]gg[employer]ki Information not available 05/14/2017 Sex: Unknown Functional Status Question Answer Note LastModified by Organization D etails LastModified Time Are you able to walk? YESWOREST [email or web address] Information not available 05/15/2021 Are you able to care for yourself? Yes [employer] Information not available 05/14/2017 What is your exercise level? None [employer] Information not available 05/14/2017 Mental Status None recorded. Family History Relationship Description Onset Age of this Age Resolved Age Notes LastModified by Organization Details LastModified Time Mother Diabetes mellitus [email or web address] Not available 05/14 14:42:04 Mother Asthma [email or web address] Not available 05/14/2017 14:42:04 Medical History Condition Response Other N Gout N Blood Diseases N Kidney Stones N Hyperthyroidism N Breast Cancer N Lung Disease N COPD N Depression N Hypothyroidism N Defects or Inherited Disease N Anesthesia Complications N Headaches/Migraines N Varicose Veins N Anxiety Disorder N Obesity N Vision or Eye Problems N Arthritis N Head Injury/Concussion N Polyps N Infertility N Congenital Anomalies N Acid Reflux (GERD) Y Cancer N Stroke N ADHD N Endometriosis N High Cholesterol N Liver Disease N Fibromyalgia N Kidney Disease N Heart Problems N Ear or Hearing Problems N Hospitalizations N Thyroid Problems N GI Problems N Acne N Skin Problems N Eating Disorder N Anemia N Constipation N Bladder Problems N Mental Illness N Ovarian Cancer N Diabetes Y Blood Transfusions N Seizures/Epilepsy N Tuberculosis N AIDS/HIV N Congestive Heart Failure (CHF) N Eczema N Diverticulitis N Abuse/Domestic Violence N Allergies N Asthma N Reflux/GERD Y Hepatitis N Pulmonary Embolism N Hypertension Y Osteoporosis N Chicken Pox N Autism Spectrum Disorder (ASD) N Immunizations Vaccine Type Date Status Note Provider Sanjeev bryant and Address Organization Details Recorded Time COVID-19, mRNA, LNP-S, PF, 100 mcg/0.5mL dose or 50 mcg/0.25mL dose 06/25/2021 completed Phyllis liz [facility] 07/05/2021 13:09:07 Tdap 05/14/2017 completed Not Available [facility] 02:21:47 Past Encounters Encounter ID Performer Location Encounter Start Date Encounter Closed Date Diagnosis/Indication Diagnosis SNOMED-CT Code Diagnosis ICD10 Code Diagnosis Note [id number] Rizwan Hinojosa MD Main Office [address] [address] 05/14/2017 14:08:55 05/14/2017 16:04:44 Administration of viral vaccine 64935651 Z23 Type 2 samuel betes mellitus 58374752 E11.9 He has a poor A1C. We will increase his metformin and will also add a statin to his regimen. Essential hypertension 33248620 I10 He states that his BP is good outside of here. We will deal with his diabetes first before making any other changes. Hyperlipidemia 29318571 E78.5 Adult heal th examination 498662482 Z00.00 New patient with poorly-con trolled diabetes. We will deal with that first. Onychomyco sis of toenails 166438256 B35.1 Completed a course of terbenifin e in late March Gastroesop hageal reflux disease 413930172 K21.9 Controlled with meds. [id number] Rizwan Hinojosa MD Main Office [address] [address] 07/17/2017 15:14:30 07/17/2017 17:05:00 Depressive disorder 48453135 F32.0 Anxiety 51895225 F41.9 Will refer to [facility] for counseling . Insomnia 382211644 G47.0 0 [id number] Rizwan Hinojosa MD Main Office [address] [place] [address] 09/11/2017 15:42:18 09/11/2017 16:59:25 Type 2 diabetes mellitus 52363231 E11.9 He continues to have a poor A1C. He will continue with the metformin 1000 bid and we will stop the glyburide and add 30 mg of pioglitazo ne to his regimen. He will return in 6 weeks to check on compliance and his A1C. Meagan contreras [id number] B35. 3 [id number] Rizwan Hinojosa MD Main Office [address] [place] [address] [place] [address] 06/29/2018 15:18:56 06/29/2018 16:19:00 Depressive disorder 86880017 F32.0 Continue current meds Type 2 samuel betes mellitus 85068515 E11.9 He continues to have a poor A1C. He will continue with the metformin 1000 bid and pioglitazo ne and try to make lifestyle changes. He will return in 3 months for a PE and diabetes check. Essential hypertension 96327430 I10 BP under good control; no changes. Insomnia 653295635 G47.0 0 [id number] Rizwan Hinojosa MD [address] [address] [place] [address] 10/25/2019 11:54:18 10/26/2019 13:06:06 Essential hypertension 36470322 I10 Will restart his lisinopril Type 2 samuel betes mellitus 66498968 E11.9 He has not been c/w nor with appointmen . Will get lab work done and will take meds as prescribed . Hyperlipidemia 50217327 E78.5 Restart lipitor and check fasting lipid level. [id number] Rizwan Hinojosa MD [address] [address] [place] [address] 11/02/2019 07:58:48 11/02/2019 12:47:31 Meagan contreras [id number] B35.3 SARS-CoV-2 276627428 U07 .1 He needs an [facility] note with a return date of 11/08. [id number] Rizwan Hinojosa MD Main Office [facility] [address] [place] [phone] 05/15/2021 15:30:28 05/15/2021 16:31:08 Type 2 diabetes mellitus [id number] E11.9 He has not been c/w nor with appointmen ts. Will get lab work done and will take meds as prescribed . Essential hypertension [id number] I10 Will restart his lisinopril Hyperlipidemia [id number] E78.5 Restart lipitor and check fasting lipid level. Health Concerns Section Related Observation LastModified by Organization Detai ls LastModified Time None Recorded Concern Status LastModified by Organization Details LastModified Time None Recorded Advance Directives Directive Y: Payers Encounter Date Sequence Insurance Name Policy Number Policy Gonzalez Covered Member ID Gonzalez Member ID Guarantor Name 09/11/2017 1 [facility] [id number] Murtaza Benjamin [id number] Sanket Velez Shafer 10/25/2019 1 [employer] [facility] (EPO) [id number] Rupinder Ramosca [id number] Cabrera Shafer 11/02/2019 1 [employer] [facility] [facility] (EPO) [id number] Rupinder Benjamin [id number] Cabrera Shafer 05/15/2021 1 [employer] [facility] (EPO) [id number] Rupinder Clarkjica [id number] Carbera Shafer Notes Date Note Type Note Provider Name and Address Organization Details Recorded Time 09/11/2017 text/html Diabetes F/URepo rted bypatient.Context:chec antonio feet regularly;home blood sugar range high;not taking aspirin daily;missing doses of medication Associated Symptoms:weight loss (10 lbs);increased thirst;increased urinationNotes:He has been sick recently and was seen at Urgent Care where he was started on prednisone which he took for a week. He was not c/w his meds while he was ill. He has an itchy rash between his toes. He has not had any cream to put on this. Rizwan Hinojosa MD [address] [address], [place], [phone], [facility] 09/11/2017 17:52:52 06/29/2018 text/html Diabetes F/URepo rted bypatient.Context:chec antonio feet regularly;not seeing eye doctor yearly;not taking aspirin daily;missing doses of medication Associated Symptoms:no weight gain; no weight loss; no dizziness; no sweats; no headaches; no confusion; no increased thirst; no increased appetite; no increased urination; no blurred vision; no numbness of feet; no calluses on feetHypertension F/UReported bypatient.Associated Symptoms:no dizziness; no lightheadedness; no chest pain; no shortness of breath; no palpitations; no edema; no calf pain with exertion Lifestyle:limiting/gillian iding salt;not exercising regularly Medications:taking medications as directed; no side effects from medication Rizwan Hinojosa MD [address], [phone], [facility] 06/29/2018 23:19:06 10/25/2019 text/html Diabetes F/URepo rted bypatient.Notes:Not c/w meds. Last A1C was June 2018 and was 11.7. States he is taking metformin and tolerating it well. Not checking his sugars.HyperlipidemiaR eported bypatient.Notes:He has not been on lipitor for a while and has not been in the office in 16 months.Hypertension F/UReported bypatient.Associated Symptoms:no dizziness; no lightheadedness; no chest pain; no shortness of breath; no palpitations; no edema; no calf pain with exertion Lifestyle:limiting/gillian iding salt;not exercising regularly Medications:no side effects from medication;not taking medications as directed Rizwan Hinojosa MD [address] [address], [place], [phone], [facility] 10/25/2019 16:47:38 11/02/2019 text/html His son was ill with a fever on 10/18 and Sanket went home from work early on that day. He was told to self-quarantine because of possible COVID from his son. His son was eventually tested and he was positive. Sanket was then tested at [facility] ER on 10/25 and was positive. He, however, has been w/o symptoms. Denies f/c, cough, trouble breathing, SOB, fatigue or body aches. His work would like him to be out 2 weeks from the time of his diagnosis and to return to work on 11/08. Rizwan Hinojosa MD [address], [phone], [facility] 11/02/2019 12:08:45 05/15/2021 text/html Diabetes F/URepo rted bypatient.Context:home blood sugar range high;not seeing eye doctor yearly;not taking aspirin daily;missing doses of medication Associated Symptoms:no weight gain; no weight loss; no dizziness; no sweats; no headaches; no confusion;increased urination;blurred visionNotes:He has not been seen in the office for almost 3 years and has not been on meds for more than 2 years. He gets up at night at least twice to urinate and urinates frequently during the day. Previously he was taking metformin 1000 mg but is asking for 500 mg tablets because the 1000 mg tablets are too big and cause him heartburn.Hyperlipidem iaReported bypatient.Notes:He has not been on meds for more than 2 years.Hypertension F/UReported bypatient.Associated Symptoms:no dizziness; no lightheadedness; no chest pain; no shortness of breath; no palpitations; no edema; no calf pain with exertion Lifestyle:not exercising regularly Medications:not taking medications as directed Rizwan Hinojosa MD [address], [phone], [facility] 05/15/2021 20:37:02
== END 2024-08-05 13:26 | disposition home or self-care (01) ==
PROVIDERS: PCP Internal Medicine; Visit Provider Internal Medicine
DX: Z00.00 Encounter for general adult medical examination without abnormal findings (principal); F32.0 Major depressive disorder, single episode, mild; E11.65 Type 2 diabetes mellitus with hyperglycemia

== ENCOUNTER → 2024-08-05 12:48 | Outpatient (BNVA) | payer OTHER, SELFPAY | PROVIDERS: PCP Internal Medicine; Visit Provider Internal Medicine | DX: Z00.00 Encounter for general adult medical examination without abnormal findings (principal); F32.0 Major depressive disorder, single episode, mild; E11.65 Type 2 diabetes mellitus with hyperglycemia; I10 Essential (primary) hypertension; Z79.899 Other long term (current) drug therapy | CPT/HCPCS: 83036; 96127 ==

== ENCOUNTER 2025-01-29 08:02 | Outpatient (REF) | payer OTHER, SELFPAY ==
[2025-01-29 09:48] LABS: Alanine Aminotransferase 19 U/L (0-40); Albumin Level 4.5 g/dL (3.5-5.0); Alkaline Phosphatase 59 U/L (39-117); Anion Gap 15 (12-20); Aspartate Amino Transferase 18 U/L (5-37); Blood Urea Nitrogen 15 mg/dL (9-16); Calcium 9.5 mg/dL (8.4-10.2); Carbon Dioxide 29 mmol/L (22-29); Chloride 101 mmol/L (96-108); Cholesterol 149 mg/dL (<200); Estimated Glomerular Filt Rate > 60; HDL Cholesterol 40 mg/dL (>40); Potassium 5.0 mmol/L (3.3-5.1); Sodium 140 mmol/L (135-145); Total Protein 7.0 g/dL (6.5-8.0); Triglycerides 84 mg/dL (<150)
[2025-01-29 11:19] LABS: Microalbum/Creatinine Ratio Ur 34.6 ug/mg cr (<30)
== END 2025-01-29 08:03 | disposition home or self-care (01) ==
LOC: HO.LAB 08:02
PROVIDERS: PCP Internal Medicine; Visit Provider Internal Medicine
DX: E11.65 Type 2 diabetes mellitus with hyperglycemia (principal); E78.5 Hyperlipidemia, unspecified; R80.9 Proteinuria, unspecified
CPT/HCPCS: 36415; 80053; 80061; 82043; 82570

== ENCOUNTER 2025-02-02 13:11 | Outpatient (AMB) | payer OTHER, SELFPAY ==
--- NOTE | 2025-02-02 13:16 | MHC.PC.OV ---
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 Accompanied by: Self / Same As Patient Allergies metformin Adverse Reaction (Mild, Verified 02/02/25 13:44) Nausea Medication List - Last Reconciled 02/02/25 by Odalys Lazcano MD blood pressure monitor As directed blood sugar diagnostic (OneTouch Verio test strips) As directed blood-glucose meter (Casual StepsTouch Verio Meter) As directed clotrimazole 1% 1 appl topical BID 4 weeks lancets (Casual StepsTouch UltraSoft Lancets) As directed lisinopril 10 mg PO DAILY omeprazole 20 mg PO DAILY PRN 30 days pioglitazone 45 mg PO DAILY 90 days rosuvastatin 5 mg PO DAILY 90 days sertraline 25 mg PO DAILY 90 days sitagliptin phosphate (Januvia) 50 mg PO DAILY 90 days terbinafine HCl 250 mg PO DAILY 90 days Tobacco use date assessed: 02/02/25 Dental Screening Dental Screen Date: 02/02/25 Did you have a dental visit in the last 12 months?: No Did you have a dental problem in the last 6 months where you did not have access to dental care?: No Was dental information given to patient?: No HPI HPI Comments History of Present Illness Details The patient is a 49-year-old male presenting for management of diabetes mellitus and associated conditions. The patient has a history of diabetes mellitus and has been taking Pioglitazone after experiencing nausea with Metformin. He recently had a lapse in medication due to refill issues, leading to a period without Januvia. He has been attempting dietary changes, including reducing portion sizes and consuming more fruits, but has experienced dizziness, possibly related to dietary changes or blood sugar fluctuations. The patient reports hypertensive retinopathy diagnosed during an ophthalmology visit, with concerns about insurance coverage for further treatment. He has been advised to see a general superintendent for further referral to a retinologist. The patient has hyperlipidemia, with recent lab results indicating elevated cholesterol levels. He consumes fried foods frequently, which may contribute to his condition. The patient also has depression with anxiety, for which he is taking Sertraline. [facility] Medical History (Updated 08/20/25 @ 13:56 by Odalys Lazcano MD) Hypertension Type 2 diabetes mellitus Limb swelling Surgical History History of carpal tunnel surgery of right wrist S/P cholecystectomy Family History Mother Diabetes Asthma HTN (hypertension) Brother Substance abuse Father No problems noted. Social History Household Members: Spouse Housing: House Alcohol intake: never Patient Tobacco Use Status: Never used Tobacco e-Cigarette/Vaping Use: Never Used Second Hand Smoke Exposure: No service: No Current occupational status: employed Current occupational exposures/hazards: No Cognitive needs: No Hearing needs: No Vision needs: No Questionnaire Thrive Questionnaire Date Thrive assessed: 02/02/25 I am a: Patient What is your living situation today?: I have a steady place to live Within the past 12 months, did the food you bought not last and you didn't have the money to get more?: I choose not to answer this question Within the past 12 months, did you worry whether your food would run out before you got money to buy more?: I choose not to answer this question Do you have trouble paying for medicines?: I choose not to answer this question Do you have trouble getting transportation to medical appointments?: I choose not to answer this question Do you have trouble paying your heating and electricity bill?: I choose not to answer this question Do you have trouble taking care of your child, family member or friend?: I choose not to answer this question Do you have trouble with day-to-day activities such as bathing, preparing meals, shopping, managing finances, etc.?: I choose not to answer this question Are you currently unemployed and looking for a job?: No Are you interested in more education?: No Please select the resources that you would like help with: None Currently or been in a relationship where the following occur: I choose not to answer THRIVE Score: 0 TOMER-7 AMB Questionnaire TOMER-7 Date TOMER - 7 assessed: 02/02/25 Source: Developed by Drs. Humble Richardson, Jing Nagel, Edy Ortiz and colleagues, with an educational cyril from [employer]. Review of Systems Const All systems reviewed & are unremarkable except as noted in HPI and below Card Denies chest pain at rest, Denies chest pain with activity, Denies edema, Denies irregular heart rhythm, Denies claudication, Denies dyspnea, Denies dyspnea on exertion, Denies orthopnea, Denies paroxysmal nocturnal dyspnea and Denies slow heart rate Resp Denies cough, Denies dyspnea and Denies dyspnea on exertion Physical exam (Primary Care) Vital Signs: Last Vital Signs Pulse 74 02/02/25 13:18 BP 126/82 02/02/25 13:18 Pulse Ox 97 02/02/25 13:18 Oxygen Delivery Method Room Air 02/02/25 13:18 BMI result Body Mass Index 26.5 Tobacco/Smoking Status: Tobacco use Status Tobacco use date assessed 02/02/25 02/02/25 13:22 Patient Tobacco Use Status Never used Tobacco 02/02/25 13:22 e-Cigarette/Vaping Use Never Used 02/02/25 13:22 Thrive Assessment: Date of Thrive Assessment Date Thrive assessed 02/02/25 02/02/25 13:22 Currently or been in a relationship where the following occur: I choose not to answer Resp Effort & Inspection: normal respiratory effort Auscultation: clear to auscultation bilaterally Cardio Jugular venous distension: no JVD Rate: regular rate Rhythm: regular rhythm Heart sounds: S1 normal heart sound present and S2 normal heart sound present Extrem General: Yes full ROM Results AMB Hemoglobin A1c AMB Hemoglobin A1c 9.3 % Last Edit by FABIAN Davenport on 02/02/25 14:05 Results Reviewed Results Reviewed: Laboratory Last Values Hgb A1c (Clinic) 9.3 % (4.0-6.0) H 02/02/25 13:48 Coding Level of Care Code Est Pt Level 4 (56569) Complex EM visit Add On G2211 Diagnoses Mild major depression F32.0 TOMER (generalized anxiety disorder) F41.1 Primary hypertension I10 Hypertension type: primary hypertension Hyperlipidemia LDL goal <70 E78.5 Type 2 diabetes mellitus with hyperglycemia, without long-term current use of insulin E11.65 Diabetes mellitus regional intermodal truck driver insulin use: without regional intermodal truck driver use Diabetes mellitus complication status: with hyperglycemia Nonproliferative diabetic retinopathy E11.3299 Time Spent (min) 22 Assessment & Plan Assessment & Plan (1) Mild major depression: Code(s): F32.0 - Major depressive disorder, single episode, mild Category: Medical (2) TOMER (generalized anxiety disorder): Code(s): F41.1 - Generalized anxiety disorder Category: Medical (3) Hypertension: Code(s): I10 - Essential (primary) hypertension Category: Medical Qualifiers: Hypertension type: primary hypertension Qualified Code(s): I10 - Essential (primary) hypertension (4) Hyperlipidemia LDL goal <70: Code(s): E78.5 - Hyperlipidemia, unspecified Category: Medical (5) Type 2 diabetes mellitus: Code(s): E11.9 - Type 2 diabetes mellitus without complications Category: Medical Qualifiers: Diabetes mellitus fci insulin use: without fci use Diabetes mellitus complication status: with hyperglycemia Qualified Code(s): E11.65 - Type 2 diabetes mellitus with hyperglycemia (6) Nonproliferative diabetic retinopathy: Code(s): E11.3299 - Type 2 diabetes mellitus with mild nonproliferative diabetic retinopathy without macular edema, unspecified eye Category: Medical Plan The plan for diabetes management includes increasing Januvia to 100 mg daily to better control blood sugar levels. The patient is advised to continue dietary modifications, focusing on reducing fried food intake and increasing fruit consumption. For hypertensive retinopathy, the patient is advised to seek a referral to a general superintendent for further evaluation and potential referral to a retinologist. Insurance coverage issues should be addressed to facilitate necessary ophthalmologic care. Hyperlipidemia management includes increasing the dose of rosuvastatin to 10 mg to achieve better cholesterol control. The patient is encouraged to adhere to dietary changes to support this management. For depression with anxiety, the patient should continue taking Sertraline as prescribed. Patient was informed and verbally consented to the use of an ambient scribe for clinic note documentation during this visit. Orders: Orders AMB Hemoglobin A1c Today Z13.9 - Encounter for screening, unspecified Vitamin D 25-OH Total 4 Months E55.9 - Vitamin D deficiency, unspecified Lipid Panel 4 Months E78.5 - Hyperlipidemia, unspecified Microalbumin, Random (w Creat) 4 Months R80.9 - Proteinuria, unspecified Comprehensive [place]. Panel Fast 4 Months E11.65 - Type 2 diabetes mellitus with hyperglycemia Referrals Ophthalmology Referral E11.3299 - Type 2 diabetes mellitus with mild nonproliferative diabetic retinopathy without macular edema, unspecified eye Medications: New sitagliptin phosphate (Januvia) 100 mg PO DAILY 90 tabs 0RF 90 days rosuvastatin 10 mg PO DAILY 90 days 90 tabs 1RF rosuvastatin 10 mg PO DAILY 90 tabs 1RF 90 days Discontinued pioglitazone Discontinued Reason: Patient Completed Course 45 mg PO DAILY 90 days 90 tabs 3RF E11.9 - Type 2 diabetes mellitus without complications rosuvastatin Discontinued Reason: Patient Completed Course 5 mg PO DAILY 90 days 90 tabs 0RF E78.5 - Hyperlipidemia, unspecified
[2025-02-02 13:18] VITALS: BP 126/82; PULSE 74; O2SAT 97; BMI 26.5
== END 2025-02-02 14:09 | disposition home or self-care (01) ==
LOC: HO.HMCH 13:12
PROVIDERS: PCP Internal Medicine; Visit Provider Internal Medicine
DX: E11.65 Type 2 diabetes mellitus with hyperglycemia (principal); E11.3299 Type 2 diabetes mellitus with mild nonproliferative diabetic retinopathy without macular edema, unspecified eye; F32.0 Major depressive disorder, single episode, mild; F41.1 Generalized anxiety disorder; I10 Essential (primary) hypertension; E78.5 Hyperlipidemia, unspecified

== ENCOUNTER → 2025-02-02 13:11 | Outpatient (BNVA) | payer OTHER, SELFPAY | PROVIDERS: PCP Internal Medicine; Visit Provider Internal Medicine | DX: E11.65 Type 2 diabetes mellitus with hyperglycemia (principal); E11.3299 Type 2 diabetes mellitus with mild nonproliferative diabetic retinopathy without macular edema, unspecified eye; E78.5 Hyperlipidemia, unspecified; F32.0 Major depressive disorder, single episode, mild; F41.1 Generalized anxiety disorder; I10 Essential (primary) hypertension; E55.9 Vitamin D deficiency, unspecified; R80.9 Proteinuria, unspecified; Z79.84 Long term (current) use of oral hypoglycemic drugs | CPT/HCPCS: 83036; 96127 ==